=== PATIENT | female | born 1990 | race Caucasian/White ===

== ENCOUNTER 2016-05-21 17:01 | Emergency (ER) | payer OTHER ==
[~2016-05-21] VITALS: Wt 64.0 kg
[~2016-05-21 17:01] MED LIST: ARIP2TAB8; IBUP-1542 PO; METH10TA3; METH36TA6
[2016-05-21] MEDS ORDERED: ONDANSETRON 4 MG INJ IV STA (18:10)
[2016-05-21] MEDS ORDERED: morphine 4 MG/ML VIAL IV STA (18:10)
[2016-05-21] MEDS ORDERED: SOD CHLORIDE 0.9% 1,000 ML IV STA (18:10)
[2016-05-21 18:51] LABS: BASOPHILS % 0.1 % (0.0-2.0); EOSINOPHILS % 0.1 % (0.0-7.0); HEMATOCRIT 44.7 % (37.0-47.0); HEMOGLOBIN 15.4 g/dl (12.0-16.0); LYMPHOCYTES # 1.5 10^3/ul (0.8-2.9); MEAN CORPUSCULAR HEMOGLOBIN 30.7 pg (29.0-33.0); MEAN CORPUSCULAR HGB CONC 34.5 g/dl (32.0-37.0); MEAN PLATELET VOLUME 7.1 fl (7.4-10.4); MONOCYTE # 0.3 10^3/ul (0.3-0.9); MONOCYTES % 2.5 % (0.0-11.0); NEUTROPHIL # 9.6 10^3/ul (1.6-7.5); NEUTROPHILS % 84.3 % (39.0-77.0); PLATELET COUNT 231 10^3/UL (140-440); RED BLOOD COUNT 5.02 10^6/ul (4.20-5.40); RED CELL DISTRIBUTION WIDTH 12.7 % (11.5-14.5); UNCORRECTED WBC 11.4 10^3/ul (4.8-10.8); WHITE BLOOD COUNT 11.4 10^3/ul (4.8-10.8)
[2016-05-21 18:53] LABS: ADD UMIC YES; URINE BILIRUBIN (Dip) NEGATIVE (NEGATIVE); URINE BLOOD (Dip) TRACE (NEGATIVE); URINE GLUCOSE (Dip) NEGATIVE (NEGATIVE); URINE KETONES (Dip) TRACE (NEGATIVE); URINE LEUKOCYTE ESTERASE (Dip) TRACE (NEGATIVE); URINE NITRITE (Dip) NEGATIVE (NEGATIVE); URINE TOTAL PROTEIN (Dip) NEGATIVE (NEGATIVE); URINE UROBILINOGEN (Dip) 0.2 E.U./dL (0.1-1.0)
[2016-05-21 18:57] LABS: CONDITION 1
[2016-05-21 19:13] LABS: BACTERIA,URINE MODERATE; MUCUS,URINE MODERATE; SQUAMOUS EPITHELIAL CELL,UR MODERATE; URINE COLOR YELLOW (YELLOW)
[2016-05-21 19:14] LABS: URINE RBCS 0-2 /HPF (0)
--- NOTE | 2016-05-21 19:29 | RADRPT ---
PROCEDURE: CT Abdomen and Pelvis without contrast CLINICAL INDICATION: Left-sided abdominal pain/vomiting TECHNIQUE: Transaxial images were obtained through the abdomen and pelvis on a multi-slice scanner without the intravenous contrast administration. A small amount of contrast had been given orally. Sagittal and coronal re-formations were subsequently reconstructed. One or more of the following dose reduction techniques were used: - Automated exposure control. - Adjustment of the mA and/or kV according to patient size. - Use of iterative reconstruction technique. Radiation dose: CTDIvol = 8.21 mGy; DLP = 481.52 mGy-cm. COMPARISON: No prior studies are available for comparison. FINDINGS: Lung bases: The visualized lung bases appear unremarkable. Liver: Normal in size and in attenuation. There is no focal lesion. Gallbladder: The wall is not thickened. No radiopaque stones are identified. Bile ducts: The intra and extrahepatic bile ducts are normal in caliber. Pancreas: Appears normal with no mass or inflammation evident. Spleen: Normal in size with no focal lesion. Adrenals: Normal with no mass identified. Kidneys, ureters and bladder: The kidneys are normal in size and there is no mass, pathological calc ification, or hydronephrosis evident. There is no perinephric stranding. The ureters are normal in c aliber and no ureteroliths are identified. The bladder appears unremarkable. Reproductive organs: There is a hypodense ring seen in the region of the cervix which may represent a contraceptive device. Stomach and bowel: Substantial stool is seen in the colon along with a small amount of contrast, but there is no evidence of bowel obstruction or inflammation. The stomach is moderately distended wit h food debris. Appendix: The vermiform appendix is not discretely identified. Peritoneum: No free intraperitoneal fluid or air is identified. Aorta: Normal in caliber with no aneurysmal dilatation. IVC: Unremarkable. Lymph nodes: No pathologically enlarged nodes are identified. Osseous structures: The osseous elements appear intact. IMPRESSION: 1. Substantial stool seen to the colon. There is no evidence of bowel obstruction or inflammation. The vermiform appendix is not discretely identified. 2. The stomach is moderately distended with food debris. 3. Otherwise, unremarkable noncontrast enhance CT scan of the abdomen and pelvis. Dominick Mensah, Physician Date Time Electronically viewed and signed by Dominick Mensah Physician on 05/21/2016 19:29 RH/
[2016-05-21 19:33] LABS: ALBUMIN 4.5 g/dl (3.3-4.9)
[2016-05-21 19:34] LABS: POTASSIUM 3.9 mmol/L (3.5-5.1)
[2016-05-21 19:36] LABS: BILIRUBIN,INDIRECT 0.5 mg/dl (0-1.1); BILIRUBIN,TOTAL 0.5 mg/dl (0.2-1.3); CREATININE 0.66 mg/dl (0.44-1.00)
[2016-05-21 19:37] LABS: ALBUMIN/GLOBULIN RATIO 1.32; TOTAL PROTEIN 7.9 g/dl (6.1-8.1)
[2016-05-21] MEDS ORDERED: ONDA4TAB14 PO (20:21)
[2016-05-21 20:34] VITALS: BP 99/55; PULSE 92; RESP 18; TEMP 98.6
--- NOTE | 2016-05-21 20:40 | ERD ---
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 States that it is predominantly in the mid abdomen and left lower quadrant. Describes the pain as throbbing and pulsating and rates it a 6 out of 10. States that it slightly radiates to the lower right side of the abdomen. States that she has had more than 30 episodes of nonbilious nonbloody vomiting. States that she has normal bowel movements daily. Denies any diarrhea, chest pain, shortness of breath, wheezing, fever, chills, neck stiffness. States her last menses was on May 12, 2016. Denies any vaginal bleeding, vaginal discharge. ROS All systems reviewed and are negative except as per history of present illness. Medications Home Meds Active Scripts Ondansetron (Ondansetron Odt) 4 Mg Tab.rapdis, 4 MG PO Q6H Y for NAUSEA AND/OR VOMITING, #10 TAB Prov:JOSE E GONZALES PA-C 05/21/16 Ibuprofen* (Motrin*) 600 Mg Tab, 600 MG PO Q6H Y for PAIN AND OR ELEVATED TEMP, #30 Prov:JENNY BELTRÁN PA-C 11/07/14 Reported Medications Methylphenidate Hcl* (Ritalin*) 10 Mg Tablet 11/07/14 Aripiprazole* (Abilify*) 2 Mg Tablet 11/07/14 Methylphenidate Hcl* (Concerta*) 36 Mg/Bottle Tab.osm.24 11/07/14 Allergies Allergies: Coded Allergies: No Known Allergy (Unverified , 05/21/16) PMhx/Soc History of Surgery: Yes (LT ANKLE) Anesthesia Reaction: No Hx Neurological Disorder: No Hx Respiratory Disorders: No Hx Cardiac Disorders: No Hx Psychiatric Problems: Yes (ADHD, DEPRESSION) Hx Miscellaneous Medical Probl: No Hx Alcohol Use: No Hx Substance Use: No Hx Tobacco Use: No Smoking Status: Never smoker Physical Exam Vitals Vital Signs Date Time Temp Pulse Resp B/P Pulse Ox O2 Delivery O2 Flow Rate FiO2 05/21/16 20:34 98.6 92 18 99/55 98 Room Air 05/21/16 17:04 99.0 94 17 119/64 100 Physical Exam Const: [id number], well-nourished. In no acute distress. Head: Atraumatic, normocephalic Eyes: Normal Conjunctiva without injection. No purulent discharge. ENT: Normal external ear, nose. Moist oropharynx without tonsillar exudates. Non -erythematous pharynx. Uvula midline. No drooling. No trismus. Neck: No cervical midline tenderness. Full range of motion. No meningismus. No cervical lymphadenopathy. No JVD. Resp: Clear to auscultation bilaterally. No wheezing, rhonchi, rales, or crackles. No accessory muscle use. No retractions. Cardio: Regular rate and rhythm. No murmurs, rubs or gallops. Abd: Soft, tender to palpation of the lower mid abdomen, left lower quadrant and slight right lower quadrant, non distended. Normal bowel sounds. No palpable masses. No rebound tenderness. No guarding. Negative McBurney's point. Negative psoas sign. Negative obturator sign. Skin: No petechiae or rashes Back: No midline tenderness. No CVA tenderness. Ext: No cyanosis, or edema. Neur: Awake and alert. Normal gait. Normal coordination. Psych: Normal Mood and Affect Result Diagram: 05/21/16183405/21/16 1835 Results 24 hrs Laboratory Tests Test 05/21/16 18:35 Alanine Aminotransferase (ALT/SGPT) 24IU/L Albumin 4.5g/dl Albumin/Globulin Ratio 1.32 Alkaline Phosphatase 96IU/L Anion Gap 19 Aspartate Amino Transf (AST/SGOT) 25IU/L Basophils # 0.010^3/ul Basophils % 0.1% Blood Morphology Comment Blood Urea Nitrogen 13mg/dl Calcium Level 9.0mg/dl Carbon Dioxide Level 25mmol/L Chloride Level 104mmol/L Creatinine 0.66mg/dl Direct Bilirubin 0.00mg/dl Eosinophils # 0.010^3/ul Eosinophils % 0.1% Globulin 3.40g/dl Glucose Level 91mg/dl Hematocrit 44.7% Hemoglobin 15.4g/dl Indirect Bilirubin 0.5mg/dl Lipase 127U/L Lymphocytes # 1.510^3/ul Lymphocytes % 13.0% Mean Corpuscular Hemoglobin 30.7pg Mean Corpuscular Hemoglobin Concent 34.5g/dl Mean Corpuscular Volume 89.0fl Mean Platelet Volume 7.1fl Monocytes # 0.310^3/ul Monocytes % 2.5% Neutrophils # 9.610^3/ul Neutrophils % 84.3% Nucleated Red Blood Cells # 0.010^3/ul Nucleated Red Blood Cells % 0.0/100WBC Platelet Count 59324^3/UL Potassium Level 3.9mmol/L Red Blood Count 5.0210^6/ul Red Cell Distribution Width 12.7% Sodium Level 144mmol/L Total Bilirubin 0.5mg/dl Total Protein 7.9g/dl Urine Bacteria MODERATE Urine Bilirubin NEGATIVE Urine Clarity SLIGHTLY CLOUDY Urine Color YELLOW Urine Glucose NEGATIVE% Urine Hemoglobin TRACE Urine Ketones TRACE Urine Leukocyte Esterase TRACE Urine Microscopic RBC 0-2/HPF Urine Microscopic WBC 2-5/HPF Urine Mucus MODERATE Urine Nitrite NEGATIVE Urine Specific [place] 1.020 Urine Squamous Epithelial Cells MODERATE Urine Total Protein NEGATIVE Urine Urobilinogen 0.2 E.U./dL Urine pH 7.0 White Blood Count 11.410^3/ul Current Medications Medications (Trade) Dose Ordered Sig/Nneka Route PRN Reason Start Time Stop Time Status Last Admin Dose Admin Sodium Chloride (NS) 1,000 ml @ 1,000 mls/hr Q1H STAT IV 05/21/16 18:10 05/21/16 19:09 DC 05/21/16 18:37 Morphine Sulfate (morphine) 4 mg ONCE STAT IV 05/21/16 18:10 05/21/16 18:16 DC 05/21/16 18:37 Ondansetron HCl (Zofran Inj) 4 mg ONCE STAT IV 05/21/16 18:10 05/21/16 18:16 DC 05/21/16 18:37 Procedures/MDM This is a 25-year-old female with no significant past medical history presents to the ED complaining of lower abdominal pain that started earlier today. Patient is afebrile and nontoxic-appearing. Patient has normal vital signs. Patient was further worked up with CBC, CMP, lipase, UA, urine , CT abdomen and pelvis without contrast. Patient's pain and symptoms have improved after treatment with 4 mg IV Zofran, 4 mg IV morphine. CBC: Mild leukocytosis of 11.4 likely secondary to vomiting or a stress reaction. No e/o anemia. CMP: No e/o severe acidosis, alkalosis, renal failure, diabetic ketoacidosis, liver disease Lipase within normal limits. Urine: No leukocyte esterase, no nitrites, no hematuria. Urine : Negative PROCEDURE: CT Abdomen and Pelvis without contrast CLINICAL INDICATION: Left-sided abdominal pain/vomiting TECHNIQUE: Transaxial images were obtained through the abdomen and pelvis on a multi-slice scanner without the intravenous contrast administration. A small amount of contrast had been given orally. Sagittal and coronal re-formations were subsequently reconstructed. One or more of the following dose reduction techniques were used: - Automated exposure control. - Adjustment of the mA and/or kV according to patient size. - Use of iterative reconstruction technique. Radiation dose: CTDIvol = 8.21 mGy; DLP = 481.52 mGy-cm. COMPARISON: No prior studies are available for comparison. FINDINGS: Lung bases: The visualized lung bases appear unremarkable. Liver: Normal in size and in attenuation. There is no focal lesion. Gallbladder: The wall is not thickened. No radiopaque stones are identified. Bile ducts: The intra and extrahepatic bile ducts are normal in caliber. Pancreas: Appears normal with no mass or inflammation evident. Spleen: Normal in size with no focal lesion. Adrenals: Normal with no mass identified. Kidneys, ureters and bladder: The kidneys are normal in size and there is no mass, pathological calcification, or hydronephrosis evident. There is no perinephric stranding. The ureters are normal in caliber and no ureteroliths are identified. The bladder appears unremarkable. Reproductive organs: There is a hypodense ring seen in the region of the cervix which may represent a contraceptive device. Stomach and bowel: Substantial stool is seen in the colon along with a small amount of contrast, but there is no evidence of bowel obstruction or inflammation. The stomach is moderately distended with food debris. Appendix: The vermiform appendix is not discretely identified. Peritoneum: No free intraperitoneal fluid or air is identified. Aorta: Normal in caliber with no aneurysmal dilatation. IVC: Unremarkable. Lymph nodes: No pathologically enlarged nodes are identified. Osseous structures: The osseous elements appear intact. IMPRESSION: 1. Substantial stool seen to the colon. There is no evidence of bowel obstruction or inflammation. The vermiform appendix is not discretely identified. 2. The stomach is moderately distended with food debris. 3. Otherwise, unremarkable noncontrast enhance CT scan of the abdomen and pelvis. At this time the CT does not show an appendix. This case was discussed with my supervising physician, Dr. Ortiz and Dr. Adame will also evaluated patient at this time. Patient's abdomen is soft. There is low suspicion for acute abdomen at this time however she was instructed to return to the ED or follow up with PCP in 8-12 hours for an abdomen recheck to rule out appendicitis since the appendix cannot be seen at this time. A differential diagnosis considered includes but is not limited to gastritis, GERD, peptic ulcer disease, cholecystitis, choledocholithiasis, cholangitis, pancreatitis, appendicitis, bowel obstruction, ileus, volvulus, nephrolithiasis, pyelonephritis, hepatitis, perforated viscus, diverticulitis, abdominal hernia, acute abdomen, mesenteric ischemia or other emergent conditions. Discharge medications: Zofran. I offered prescribing patient pain medication however mother and patient denied wanting any pain medications and stated that they had Advil at home. Follow up with primary care physician in 1-2 days for referral to compensation administrator. Instructed patient to return to the ED sooner for any worsening symptoms. Patient's questions were answered. Patient understood and agreed with discharge plan. Patient discharged stable. Departure Diagnosis: Primary Impression: Abdominal pain Abdominal location: unspecified location Qualified Code: R10.9 - Abdominal pain, unspecified location Condition: Stable Patient Instructions: Abdominal Pain Referrals: [facility] (PCP) [facility] YOU HAVE RECEIVED A MEDICAL SCREENING EXAM AND THE RESULTS INDICATE THAT YOU DO NOT HAVE A CONDITION THAT REQUIRES URGENT TREATMENT IN THE EMERGENCY DEPARTMENT. FURTHER EVALUATION AND TREATMENT OF YOUR CONDITION CAN WAIT UNTIL YOU ARE SEEN IN YOUR DOCTORS OFFICE WITHIN THE NEXT 1-2 DAYS. IT IS YOUR RESPONSIBILITY TO MAKE AN APPOINTMENT FOR FOLOW-UP CARE. IF YOU HAVE A PRIMARY DOCTOR --you should call your primary doctor and schedule an appointment IF YOU DO NOT HAVE A PRIMARY DOCTOR YOU CAN CALL OUR PHYSICIAN REFERRAL HOTLINE AT IF YOU CAN NOT AFFORD TO SEE A PHYSICIAN YOU CAN CHOSE FROM THE FOLLOWING [facility] [address] [facility] [address] [facility] [facility] [address] [facility] [address] [facility] [address] [facility]. [facility]. [address] [facility]. [facility] YOU HAVE RECEIVED A MEDICAL SCREENING EXAM AND THE RESULTS INDICATE THAT YOU DO NOT HAVE A CONDITION THAT REQUIRES URGENT TREATMENT IN THE EMERGENCY DEPARTMENT. FURTHER EVALUATION AND TREATMENT OF YOUR CONDITION CAN WAIT UNTIL YOU ARE SEEN IN YOUR DOCTORS OFFICE WITHIN THE NEXT 1-2 DAYS. IT IS YOUR RESPONSIBILITY TO MAKE AN APPOINTMENT FOR FOLOW-UP CARE. IF YOU HAVE A PRIMARY DOCTOR --you should call your primary doctor and schedule and appointment IF YOU DO NOT HAVE A PRIMARY DOCTOR YOU CAN CALL OUR PHYSICIAN REFERRAL HOTLINE AT . IF YOU CAN NOT AFFORD TO SEE A PHYSICIAN YOU CAN CHOSE FROM THE FOLLOWING [facility] INSTITUTIONS: [facility] [address] [place] [address] [facility] [address] [place], [place] [id number] [place] [address] [address] [place] [address] [facility] URGENT CARE/SPECIALTIES Additional Instructions: FOLLOW UP WITH YOUR PRIMARY CARE PHYSICIAN in 8-12 hours or if you cannot get an appointment, return to the ED. Return to this facility sooner if you are not improving as expected. JOSE E GONZALES PA-C May 21, 2016 20:40
== END 2016-05-21 20:34 | disposition home or self-care (01) ==
LOC: FTE 17:01
DX: R10.32 Left lower quadrant pain (principal); R11.2 Nausea with vomiting, unspecified
CPT/HCPCS: 36415; 74176; 80053; 81001; 83690; 85025; 96374; 96375; 99285; J2270; J2405; J7030; 81003